=== PATIENT | female | born 1955 | race African-American/Black ===

== ENCOUNTER 2018-12-18 10:59 | Emergency (ER) | payer OTHER ==
[~2018-12-18] VITALS: Ht 172.7 cm; Wt 81.6 kg
[2018-12-18] MEDS ORDERED: ASPIR 8181 MG ORAL (11:09)
[2018-12-18] MEDS ORDERED: AMLODIPINE BES2.5 MG ORAL (11:09)
[2018-12-18] MEDS ORDERED: ATENOLOL25 MG ORAL (11:09)
[2018-12-18] MEDS ORDERED: BENAZEPRIL HCL10 MG ORAL (11:09)
[2018-12-18] MEDS ORDERED: PLAVIX75 MG ORAL (11:09)
--- NOTE | 2018-12-18 11:10 | Emergency Room Report ---
History of Present Illness General Chief Complaint: Chest Pain Source: Patient Present Illness HPI 63-year-old female history of hypertension, hyperlipidemia, CAD, stent placement , stroke, presents with chest pain that started at 8 PM at rest, no aggravating alleviating factors, she does endorse some shortness of breath, no diaphoresis, pain does not radiate she describes it as achy moderate severity she denies any nausea vomiting, epigastric pain, she endorses a mild to moderate discomfort. Patient denies any dyspnea on exertion. Allergies: Coded Allergies: No Known Allergies (Unverified , 12/18/18) Patient History Past Medical History: see triage record Social History: Reports: smoking Last Menstrual Period: menopause Now: No Reviewed Nursing Documentation: PMH: Agreed; PSxH: Agreed Nursing Documentation-PMH Hx Cardiac Problems: Yes - cva 2008 Hx Hypertension: Yes Hx Asthma: Yes Review of Systems Constitutional: Denies: chills, fever Eye: Denies: blurred vision, double vision ENT: Denies: throat pain, nasal discharge Respiratory: Denies: cough, shortness of breath Cardiovascular: Reports: chest pain; Denies: palpitations Gastrointestinal: Denies: abdominal pain, diarrhea, nausea, vomiting Genitourinary: Denies: dysuria, pain Musculoskeletal: Denies: back pain, muscle pain Skin: Denies: rash, lesions Neurological: Denies: headache, focal weakness Hematologic/Lymphatic: Denies: easy bleeding, easy bruising All Other Systems: negative except mentioned in HPI Physical Exam Vital Signs Date Time Temp Pulse Resp B/P (MAP) Pulse Ox O2 Delivery O2 Flow Rate FiO2 12/18/18 11:05 99.0 69 16 183/75 (111) 99 Room Air Sp02 EP Interpretation: reviewed, normal General Appearance: well appearing, no apparent distress, alert Head: normocephalic, atraumatic Eyes: bilateral eye PERRL, bilateral eye EOMI ENT: uvula midline, moist mucus membranes Neck: supple, thyroid normal, supple/symm/no masses Respiratory: lungs clear, no respiratory distress, no retraction, no accessory muscle use Cardiovascular #1: normal peripheral pulses, regular rate, rhythm, no edema, no gallop, no murmur Gastrointestinal: non tender, soft, no guarding, no rebound Musculoskeletal: normal inspection Neurologic: alert, oriented x3 Psychiatric: mood/affect normal Skin: no rash, warm/dry Procedures Critical Care Time Critical Care Time Given the critical condition in which the patient arrived, the patient was immediately assessed by myself and the nurse, and cardiac monitoring initiated due to the potential for rapid decompensation of the patient's clinical condition. During the course of the patient's stay, I spent a considerable amount of time at the bedside performing serial re-evaluations of the patient's hemodynamic and clinical status because of the recognized potential threat to life or limb in this condition. I then had a chance to review not only all of the available current laboratory and radiographic studies obtained today, but I also reviewed old records available to me at the time. Additionally, any ancillary information available including shoe reconditioner records were reviewed. Sequential vital signs were obtained. Critical Care time of 33 minutes was performed exclusive of billable procedures. Patient with elevated troponin biphasic t waves Medical Decision Making Diagnostic Impression: Primary Impression: STEMI (ST elevation myocardial infarction) Qualified Codes: I21.3 - ST elevation (STEMI) myocardial infarction of unspecified site Additional Impression: Chest pain Qualified Codes: R07.9 - Chest pain, unspecified ER Course 63-year-old female multiple comorbidities presents with chest pain left-sided chest, concerning for ACS, will obtain EKG, patient will receive aspirin, patient will be admitted to the hospital Dr. Rhea Yanez at 12:48 PM patient will be accepted by [facility] Spoke with Dr. Yanez at 12:59pm, patient will be a STEMI and sent to [facility] for emergent Finish Mender Lovenox and ASA given to patient 911 called Laboratory Tests Test 12/18/18 11:06 White Blood Count 7.9 K/UL (4.8-10.8) Red Blood Count 4.44 M/UL (4.20-5.40) Hemoglobin 14.5 G/DL (12.0-16.0) Hematocrit 42.5 % (37.0-47.0) Mean Corpuscular Volume 96 FL (80-99) Mean Corpuscular Hemoglobin 32.8 PG (27.0-31.0) H Mean Corpuscular Hemoglobin Concent 34.2 G/DL (32.0-36.0) Red Cell Distribution Width 11.7 % (11.6-14.8) Platelet Count 344 K/UL (150-450) Mean Platelet Volume 4.9 FL (6.5-10.1) L Neutrophils (%) (Auto) 66.0 % (45.0-75.0) Lymphocytes (%) (Auto) 23.8 % (20.0-45.0) Monocytes (%) (Auto) 6.5 % (1.0-10.0) Eosinophils (%) (Auto) 2.4 % (0.0-3.0) Basophils (%) (Auto) 1.4 % (0.0-2.0) Prothrombin Time 10.3 SEC (9.30-11.50) Prothrombin Time INR 1.0 (0.9-1.1) PTT 25 SEC (23-33) Sodium Level 140 MMOL/L (136-145) Potassium Level 4.0 MMOL/L (3.5-5.1) Chloride Level 105 MMOL/L (98-107) Carbon Dioxide Level 27 MMOL/L (21-32) Anion Gap 8 mmol/L (5-15) Blood Urea Nitrogen 8 mg/dL (7-18) Creatinine 0.9 MG/DL (0.55-1.30) Estimate Glomerular Filtration Rate > 60 mL/min (>60) Glucose Level 122 MG/DL (74-106) H Calcium Level 9.3 MG/DL (8.5-10.1) Total Bilirubin 0.4 MG/DL (0.2-1.0) Aspartate Amino Transferase (AST) 16 U/L (15-37) Alanine Aminotransferase (ALT) 16 U/L (12-78) Alkaline Phosphatase 74 U/L (46-116) Total Creatine Kinase 68 U/L (26-308) Creatine Kinase MB 1.2 NG/ML (0.0-3.6) Creatine Kinase MB Relative Index 1.7 Troponin I 0.307 ng/mL (0.000-0.056) Pro-B-Type Natriuretic Peptide 222 pg/mL (0-125) H Total Protein 7.7 G/DL (6.4-8.2) Albumin 3.7 G/DL (3.4-5.0) Globulin 4.0 g/dL Albumin/Globulin Ratio 0.9 (1.0-2.7) L Lipase 101 U/L (73-393) EKG Diagnostic Results EKG Time: 11:09 EP Interpretation: NSR, rate 64, QTc 427, normal axis, no acute ST elevations Rate: normal Rhythm: NSR ST Segments: other - biphasis t waves v2 v3 Rhythm Strip Diag. Results Rhythm Strip Time: 11:14 EP Interpretation: yes Rate: 68 Rhythm: NSR, no PVC's, no ectopy Chest X-Ray Diagnostic Results Chest X-Ray Diagnostic Results : Chest X-Ray Ordered: Yes # of Views/Limited/Complete: 1 View Indication: Chest Pain EP Interpretation: Yes Interpretation: no consolidation, no effusion, no pneumothorax, no acute cardiopulmonary disease Impression: No acute disease Electronically Signed by: Amando Chinchilla MD Last Vital Signs Date Time Temp Pulse Resp B/P (MAP) Pulse Ox O2 Delivery O2 Flow Rate FiO2 12/18/18 11:05 99.0 69 16 183/75 (111) 99 Room Air Disposition: COUNTS INCLUDE 234 BEDS AT THE [facility] [place] Condition: Stable Amando Chinchilla MD Dec 18, 2018 11:10
[2018-12-18 11:15] VITALS: BP 183/75
[2018-12-18] MEDS ORDERED: Nitroglycerin 2% oint pkt TOPIC ONE (11:15)
[2018-12-18] MEDS ORDERED: Aspirin Baby 81mg ORAL ONE (11:15)
--- NOTE | 2018-12-18 11:15 | NUR ---
ED Nurse Note: Pt from home walked in due to sternal CP, non radiating worse when she breathes started last night. Hx of heart attack. Denies N/V or dizziness. AAO x4, ambulatory with non labored breathing. Calm and cooperative. Family meber at the bed side. EKG done.
[2018-12-18 11:26] LABS: BASOPHILS % (AUTO) 1.4 % (0.0-2.0); EOSINOPHILS % (AUTO) 2.4 % (0.0-3.0); HEMATOCRIT 42.5 % (37.0-47.0); HEMOGLOBIN 14.5 G/DL (12.0-16.0); LYMPHOCYTES % (AUTO) 23.8 % (20.0-45.0); MEAN CORPUSCULAR VOLUME 96 FL (80-99); MONOCYTES % (AUTO) 6.5 % (1.0-10.0); PLATELET COUNT 344 K/UL (150-450); RED BLOOD COUNT 4.44 M/UL (4.20-5.40); RED CELL DISTRIBUTION WIDTH 11.7 % (11.6-14.8); WHITE BLOOD COUNT 7.9 K/UL (4.8-10.8)
--- NOTE | 2018-12-18 11:33 | NUR ---
ED Nurse Note: Collectd blood then sent.
[2018-12-18 11:36] LABS: ANION GAP 8 mmol/L (5-15); BLOOD UREA NITROGEN 8 mg/dL (7-18); CALCIUM 9.3 MG/DL (8.5-10.1); CARBON DIOXIDE 27 MMOL/L (21-32); CHLORIDE 105 MMOL/L (98-107); CREATININE 0.9 MG/DL (0.55-1.30); SODIUM 140 MMOL/L (136-145)
[2018-12-18 11:49] LABS: ALANINE AMINOTRANSFERASE 16 U/L (12-78); ALBUMIN 3.7 G/DL (3.4-5.0); ALBUMIN/GLOBULIN RATIO 0.9 (1.0-2.7); ALKALINE PHOSPHATASE 74 U/L (46-116); ASPARTATE AMINO TRANSFERASE 16 U/L (15-37); BILIRUBIN,TOTAL 0.4 MG/DL (0.2-1.0); CKMB 1.2 NG/ML (0.0-3.6); CREATINE KINASE 68 U/L (26-308)
--- NOTE | 2018-12-18 11:49 | Diagnostic Imaging Report ---
EXAM: XR Chest, 1 View CLINICAL HISTORY: CP TECHNIQUE: Frontal view of the chest. COMPARISON: No relevant prior studies available. FINDINGS: Lungs: No consolidation. Pleural space: Unremarkable. No pneumothorax. Heart: Mild cardiomegaly. Mediastinum: Unremarkable. Bones/joints: No acute fracture. IMPRESSION: No acute cardiopulmonary disease.
[2018-12-18] MEDS ORDERED: Enoxaparin 80mg Inj SUBQ ONE (12:45)
[2018-12-18 13:17] VITALS: BP 163/80
--- NOTE | 2018-12-18 13:17 | NUR ---
ED Nurse Note: Report given to Courtney KHALIL of [facility]. Pt transferred via ambulance with belongings sent.
--- NOTE | 2018-12-19 12:17 | Cardiology Report ---
APPROVED REPORT EKG Measurement Heart [id number] Normal sinus rhythm Possible Left atrial enlargement Left ventricular hypertrophy Abnormal ECG
== END 2018-12-18 13:17 | disposition short-term general hospital (02) ==
LOC: EMR 11:32
DX: I21.3 ST elevation (STEMI) myocardial infarction of unspecified site (principal); R07.9 Chest pain, unspecified; I11.9 Hypertensive heart disease without heart failure; E78.5 Hyperlipidemia, unspecified; Z87.891 Personal history of nicotine dependence; Z86.73 Personal history of transient ischemic attack (TIA), and cerebral infarction without residual deficits; Z95.5 Presence of coronary angioplasty implant and graft
CPT/HCPCS: 36415; 71045; 80053; 82550; 82553; 83690; 83880; 84484; 85025; 85610; 85730; 93005; 96372; 99291; J1650